=== PATIENT | male | born 1955 | race African-American/Black ===

== ENCOUNTER 2020-06-04 12:37 | Emergency (ER) | payer BC ==
--- NOTE | 2020-06-04 13:13 | EDM.PDOC ---
ED [facility] GENERAL MEDICAL PROBLEM - General Chief Complaint: Abdominal Pain Stated Complaint: ABDOMINAL PAIN Time Seen by Provider: 06/04/20 12:39 Source of Information: Reports: Patient History Limitations: Reports: No Limitations - History of Present Illness INITIAL COMMENTS - FREE TEXT/NARRATIVE: HISTORY AND PHYSICAL: History of present illness: Patient is a 65-year-old male who presents to the ED today with concern of an episode of abdominal pain that he states was more severe that happened 3 days ago. Patient states that since then he has had some leftover soreness in his abdomen but states that he is not having abdominal pain at this time. Patient states he was concerned because a friend told him with how severe his abdominal pain could be, that he could have an ulcer. Patient states that he has had this abdominal pain in the past and was placed on omeprazole and states that he had improvement of his symptoms several years ago. Patient denies any current symp toms at this time. Patient denies fever, chills, chest pain, shortness of breath, or cough. Denies headache, neck stiff ness, change in vision, syncope, or near syncope. Denies nausea, vomiting, abdominal pain, diarrhea, constipation, or dysuria. Has not noted any blood in urine or stool. Patient has been eating and drinking appropriately. Review of systems: As per history of present illness and below otherwise all systems reviewed and negative. Past medical history: As per history of present illness and as reviewed below otherwise noncontributory. Surgical history: As per history of present illness and as reviewed below otherwise noncontributory. Social history: See social history for further information Family history: As per history of present illness and as reviewed below otherwise noncontributory. Physical exam: General: Patient is alert, oriented, and in no acute distress. Patient sitting comfortably on exam table. HEENT: Atraumatic, normocephalic, pupils equal and reactive bilaterally, negative for conjunctival pallor or scleral icterus, mucous membranes moist, TMs normal bilaterally, throat clear, neck supple, nontender, trachea midline. No drooling or trismus noted. No meningeal signs. No hot potato voice noted. Lungs: Clear to auscultation, breath sounds equal bilaterally, chest nontender. Heart: S1S2, regular rate and rhythm without overt murmur Abdomen: Soft, nondistended, nontender. Negative for masses or hepatosplenomegaly. Negative for costovertebral tenderness. Pelvis: Stable nontender. Genitourinary: Deferred. Rectal: Deferred. Skin: Intact, warm, dry. No lesions or rashes noted. Extremities: Atraumatic, negative for cords or calf pain. Neurovascular unremarkable. Neuro: Awake, alert, oriented. Cranial nerves II through XII unremarkable. Ce rebellum unremarkable. Motor and sensory unremarkable throughout. Exam nonfocal. Notes: Patient is not currently having any symptoms today, however, will do medical screening exam due to significance of stated abdominal pain that occurred 2 to 3 days ago. Discussed importance for follow-up with a primary care provider. Voices understanding and is agreeable to plan of care. Denies any further ques tions or concerns at this time. Diagnostics: CBC, CMP, UA, EKG, troponin, lipase, CXR Therapeutics: None Prescription: None Impression: Medical screening exam H/O abdominal pain Plan: 1. You can take ciqh-knj-uofunej omeprazole (Prilosec) as directed and as discussed. 2. Follow-up with a primary care provider as discussed. Return to the ED as needed and as discussed. Definitive disposition and diagnosis as appropriate pending reevaluation and review of above. - Related Data Allergies Allergy/AdvReac Type Severity Reaction Status Date / Time No Known Allergies Allergy Verified 06/04/20 13:31 Home Meds: Home Meds Esomeprazole [NexIUM] 20 mg PO DAILY 06/04/20 [History] amLODIPine [Norvasc] 0 mg PO DAILY 06/04/20 [History] lisinopriL [Lisinopril] 20 mg PO DAILY 06/04/20 [History] ED ROS GENERAL - Review of Systems Review Of Systems: Comprehensive ROS is negative, except as noted in HPI. ED EXAM, GENERAL - Physical Exam Exam: See Below (see dictation) Course - Vital Signs Last Recorded V/S: Last Vital Signs Temp 97.2 F 06/04/20 13:05 Pulse 76 06/04/20 13:05 Resp 17 06/04/20 13:05 BP 110/74 06/04/20 13:05 Pulse Ox 97 06/04/20 13:05 - Orders/Labs/Meds Orders: Active Orders 24 hr Category Date Time Status EKG Documentation Completion [RC] STAT Care 06/04/20 13:28 Active UA RFX JORY AND CULT IF INDIC [URIN] Stat Lab 06/04/20 13:28 Stop Req Labs: Laboratory Tests 06/04/20 06/04/20 Range/Units 13:47 13:47 WBC 6.60 (4.0-11.0) K/uL RBC 4.72 (4.50-5.90) M/uL Hgb 14.2 (13.0-17.0) g/dL Hct 43.3 (38.0-50.0) % MCV 91.7 (80.0-98.0) fL MCH 30.1 (27.0-32.0) pg MCHC 32.8 (31.0-37.0) g/dL RDW Std Deviation 42.5 (28.0-62.0) fl RDW Coeff of Federica 13 (11.0-15.0) % Plt Count 224 (150-400) K/uL MPV 9.30 (7.40-12.00) fL Neut % (Auto) 59.0 (48.0-80.0) % Lymph % (Auto) 29.8 (16.0-40.0) % [place] % (Auto) 8.5 (0.0-15.0) % Eos % (Auto) 2.4 (0.0-7.0) % Baso % (Auto) 0.3 (0.0-1.5) % Neut # (Auto) 3.9 (1.4-5.7) K/uL Lymph # (Auto) 2.0 (0.6-2.4) K/uL [place] # (Auto) 0.6 (0.0-0.8) K/uL Eos # (Auto) 0.2 (0.0-0.7) K/uL Baso # (Auto) 0.0 (0.0-0.1) K/uL Nucleated RBC % 0.0 /100WBC Nucleated RBCs # 0 K/uL Sodium 141 (136-148) mmol/L Potassium 4.3 (3.5-5.1) mmol/L Chloride 106 (98-107) mmol/L Carbon Dioxide 24.9 (21.0-32.0) mmol/L BUN 19 H (7.0-18.0) mg/dL Creatinine 1.1 (0.8-1.3) mg/dL Est Cr Clr Drug Dosing 76.67 mL/min Estimated GFR (MDRD) > 60.0 ml/min Glucose 106 (74-106) mg/dL Calcium 9.3 (8.5-10.1) mg/dL Total Bilirubin 0.4 (0.2-1.0) mg/dL AST 35 (15-37) IU/L ALT 60 (14-63) IU/L Alkaline Phosphatase 66 (46-116) U/L Troponin I < 0.050 (0.000-0.056) ng/mL Total Protein 7.3 (6.4-8.2) g/dL Albumin 3.6 (3.4-5.0) g/dL Globulin 3.7 (2.6-4.0) g/dL Albumin/Globulin Ratio 1.0 (0.9-1.6) Lipase 141 (73-393) U/L Departure - Departure Time of Disposition: 14:46 Disposition: Home, Self-Care 01 Clinical Impression: Encounter for medical screening examination, History of abdominal pain - Discharge Information Referrals: PCP,Not In Area [Primary Care Provider] - Forms: ED Department Discharge Additional Instructions: The following information is given to patients seen in the emergency department who are being discharged to home. This information is to outline your options for follow-up care. We provide all patients seen in our emergency department with a follow-up referral. The need for follow-up, as well as the timing and circumstances, are variable depending upon the specifics of your emergency department visit. If you don't have a primary care physician on staff, we will provide you with a referral. We always advise you to contact your personal physician following an emergency department visit to inform them of the circumstance of the visit and for follow-up with them and/or the need for any referrals to a consulting specialist. The emergency department will also refer you to a specialist when appropriate. This referral assures that you have the opportunity for follow-up care with a specialist. All of these measure are taken in an effort to provide you with optimal care, which includes your follow-up. Under all circumstances we always encourage you to contact your private physician who remains a resource for coordinating your care. When calling for follow-up care, please make the office aware that this follow-up is from your recent emergency room visit. If for any reason you are refused follow-up, please contact the [facility] Emergency Department at and asked to speak to the emergency department charge nurse. [facility] [address] [place] [address] [address] 1. You can take djni-dth-lihoyvl omeprazole (Prilosec) as directed and as discussed. 2. Follow-up with a primary care provider as discussed. Return to the ED as needed and as discussed. Sepsis Event Note (ED) - Evaluation Sepsis Screening Result: No Definite Risk - Focused Exam Vital Signs: Vital Signs Temp Pulse Resp BP Pulse Ox 06/04/20 13:05 97.2 F 76 17 110/74 97 - My Orders Last 24 Hours: My Active Orders 06/04/20 13:28 EKG Documentation Completion [RC] STAT UA RFX JORY AND CULT IF INDIC [URIN] Stat - Assessment/Plan Last 24 Hours: My Active Orders 06/04/20 13:28 EKG Documentation Completion [RC] STAT UA RFX JORY AND CULT IF INDIC [URIN] Stat
[2020-06-04 14:28] LABS: BLOOD UREA NITROGEN,BUN 19 mg/dL (7.0-18.0); CARBON DIOXIDE,CO2 24.9 mmol/L (21.0-32.0); CHLORIDE,CL 106 mmol/L (98-107); GLUCOSE RANDOM 106 mg/dL (74-106); LIPASE 141 U/L (73-393); POTASSIUM,K 4.3 mmol/L (3.5-5.1); SODIUM,NA 141 mmol/L (136-148)
--- NOTE | 2020-06-04 14:31 | CR ---
Chest: Portable view of the chest was obtained. Comparison: No previous chest imaging. Heart size and mediastinum are normal. Lungs are clear with no acute parenchymal change. Bony structures are grossly intact. Impression: 1. Nothing acute is seen on the frontal chest x-ray. Diagnostic code #1 This report was dictated in MDT
== END 2020-06-04 14:50 | disposition home or self-care (01) ==
LOC: MW.ED 12:37
DX: Z13.89 Encounter for screening for other disorder (principal); Z79.899 Other long term (current) drug therapy
CPT/HCPCS: 36415; 71045; 71045-26; 80053; 83690; 84484; 85025; 93005; 99283; 99283-25

== ENCOUNTER 2020-06-25 09:03 | Day surgery (SDC) | payer BC, OTHER ==
[~2020-06-25 09:03] MED LIST: Lactated Ringers 1,000 ML IV SCH
[2020-06-25] MEDS ORDERED: Propofol 200 MG/20 ML SDV ONE ×3 (10:17→11:32)
--- NOTE | 2020-06-25 10:41 | PCM.PREANE ---
Preanesthetic Assessment - Anesthesia/Transfusion/Family Hx Anesthesia History: Prior Anesthesia Without Reaction Other Type of Anesthesia Reaction Comment: states "it is hard to put me under" Family History of Anesthesia Reaction: No Transfusion History: No Prior Transfusion(s) Intubation History: Unknown - Review of Systems General: No Symptoms Pulmonary: No Symptoms Cardiovascular: No Symptoms Gastrointestinal: Abdominal Pain Neurological: No Symptoms Other: Reports: None - Physical Assessment Height: 6 ft 1 in Weight: 81.647 kg ASA Class: 3 Mental Status: Alert & Oriented x3 Airway Class: Mallampati = 2 Dentition: Reports: Partial (upper (removed)) Thyro-Mental Finger Breadths: 3 Mouth Opening Finger Breadths: 3 ROM/Head Extension: Full Lungs: Normal Respiratory Effort Cardiovascular: Regular Rate, Regular Rhythm - Lab Values: Laboratory Last Values SARS-CoV-2 RNA (MICHAEL) NEGATIVE (NEGATIVE) 06/25/20 09:15 - Allergies Allergies/Adverse Reactions: Allergies Allergy/AdvReac Type Severity Reaction Status Date / Time No Known Allergies Allergy Verified 06/23/20 08:59 - Blood Blood Available: No - Anesthesia Plan Pre-Op Medication Ordered: None - Acknowledgements Anesthesia Type Planned: MAC Pt an Appropriate Candidate for the Planned Anesthesia: Yes Alternatives and Risks of Anesthesia Discussed w Pt/Guardian: Yes Pt/Guardian Understands and Agrees with Anesthesia Plan: Yes PreAnesthesia Questionnaire HEENT History: Reports: Other (See Below) Other HEENT History: wears glasses, has top denture Cardiovascular History: Reports: Hypertension Respiratory History: Reports: None Gastrointestinal History: Reports: Colon Polyp, GERD, Hepatitis Other Gastrointestinal History: intermittent abd pain, states he was told he had hepatitis C , 5 to 6 months ago. Genitourinary History: Reports: None Musculoskeletal History: Reports: None Neurological History: Reports: None Psychiatric History: Reports: None Endocrine/Metabolic History: Reports: None Hematologic History: Reports: None Immunologic History: Reports: None Oncologic (Cancer) History: Reports: Other (See Below) (recent CT scanshowed mass at lateral wall of terminal ileum, also cluster of enlarged lymph nodes around lung mass and prominent lymph nodes in the mesentery) Dermatologic History: Reports: None - Infectious Disease History Infectious Disease History: Reports: Hepatitis C - Past Surgical History Head Surgeries/Procedures: Reports: None HEENT Surgical History: Reports: None Cardiovascular Surgical History: Reports: None Respiratory Surgical History: Reports: None GI Surgical History: Reports: None, Colonoscopy ('15 in [place]) Male Surgical History: Reports: None Endocrine Surgical History: Reports: None Neurological Surgical History: Reports: None Musculoskeletal Surgical History: Reports: None Oncologic Surgical History: Reports: None Dermatological Surgical History: Reports: None - SUBSTANCE USE Smoking Status *Q: Current Some Day Smoker Tobacco Use Within Last Twelve Months: Cigarettes - HOME MEDS Home Medications: Home Meds Esomeprazole [NexIUM] 20 mg PO DAILY 06/04/20 [History] amLODIPine [Norvasc] 10 mg PO DAILY 06/04/20 [History] lisinopriL [Lisinopril] 20 mg PO DAILY 06/04/20 [History] - CURRENT (IN HOUSE) MEDS Current Meds: Current Medications Lactated Ringer's (Ringers, Lactated) 1,000 mls @ 125 mls/hr IV ASDIRECTED ANDRAE Discontinued Medications Lidocaine HCl (Xylocaine-Mpf 1%) Confirm Administered Dose 5 ml .ROUTE .STK-MED ONE Stop: 06/25/20 10:18 Propofol (Diprivan 20 Ml) Confirm Administered Dose 400 mg .ROUTE .STK-MED ONE Stop: 06/25/20 10:18
--- NOTE | 2020-06-25 12:12 | PCM.POSTAN ---
POST ANESTHESIA ASSESSMENT - MENTAL STATUS Mental Status: Alert, Oriented - VITAL SIGNS Vital Signs: Last Vital Signs Temp 36.9 C 06/25/20 10:30 Pulse 75 06/25/20 12:06 Resp 13 06/25/20 12:06 BP 140/80 06/25/20 12:06 Pulse Ox 100 06/25/20 12:06 - RESPIRATORY Respiratory Status: Respiratory Rate WNL, Airway Patent, O2 Saturation Stable - CARDIOVASCULAR CV Status: Pulse Rate WNL, Blood Pressure Stable - GASTROINTESTINAL GI Status: No Symptoms - PAIN Pain Score: 0 - POST OP HYDRATION Hydration Status: Adequate & Stable - OBSERVATIONS Free Text/Narrative:: No anesthesia problems
--- NOTE | 2020-06-25 12:21 | PCM.OPNOTE ---
- General Post-Op/Procedure Note Date of Surgery/Procedure: 06/25/20 Operative Procedure(s): Colonoscopy - incomplete - with snarr polypectomy and EGD and with biopsies Findings: Unable to get past the splenic flexture on colonoscopy, Polyp at 20 cm. EGD with irregular GE junction. Pre Op Diagnosis: abdominal pain. Post-Op Diagnosis: incomplete colonoscopy, colon polyp, irregular GE juction. Anesthesia Technique: Moderate Sedation Primary Surgeon: Ritesh Mendoza Pathology: EGD with biopsies, colon polyp at 20 cm, random colon biopsies. Complications: None Condition: Good Free Text/Narrative:: Intake & Output 06/24/20 06/25/20 06/25/20 22:59 06:59 14:59 Intake Total 750 Balance 750
--- NOTE | 2020-06-25 12:33 | PCM48HPAN ---
Post Anesthesia Note - EVALUATION WITHIN 48HRS OF ANESTHETIC Vital Signs in Normal Range: Yes Patient Participated in Evaluation: Yes Respiratory Function Stable: Yes Airway Patent: Yes Cardiovascular Function Stable: Yes Hydration Status Stable: Yes Pain Control Satisfactory: Yes Nausea and Vomiting Control Satisfactory: Yes Mental Status Recovered: Yes Vital Signs: Last Vital Signs Temp 36.1 C 06/25/20 12:15 Pulse 71 06/25/20 12:22 Resp 16 06/25/20 12:22 BP 139/76 06/25/20 12:22 Pulse Ox 99 06/25/20 12:22 - COMMENTS/OBSERVATIONS Free Text/Narrative:: No anesthesia problems
--- NOTE | 2020-06-25 15:33 | OR ---
SURGEON: ALEX PRUETT MD DATE OF PROCEDURE: 06/25/2020 PREOPERATIVE DIAGNOSES: Abdominal pain. He also had a CT scan showing masses in his omentum and a mass potentially involving the wall of the terminal ileum. POSTOPERATIVE DIAGNOSES: 1. Slightly irregular gastroesophageal junction. 2. Colonoscopy, incomplete. 3. Colon polyp at 20 cm. PROCEDURES PERFORMED: 1. Colonoscopy, incomplete, to the splenic flexure. 2. Hot snare polypectomy. 3. Random colon biopsies. 4. Esophagogastroduodenoscopy with biopsies. PRIMARY SURGEON: Alex Pruett MD ANESTHESIA: General. EXTENT OF COLONOSCOPY: Likely to the splenic flexure. EXTENT OF EGD: To the duodenum. WITHDRAWAL TIME OF COLONOSCOPY: Not applicable. BOWEL PREP: Excellent. REASON FOR PROCEDURE: The patient is a pleasant 65-year-old gentleman who about a year ago started having abdominal pain. These come infrequently and have only happened about three times. When he has the pain, it is severe pain that bends him over. He did have a CT scan that showed multiple abdominal masses, some in the omentum, up in the left upper quadrant, and mass near his terminal ileum, possibly involving the wall of the terminal ileum. I did go over with the patient that we could do an upper and lower endoscopy and see if we find a potential source for these masses. I went over that I may not be able to get into the terminal ileum. The patient understands and wishes to proceed. PROCEDURE NARRATIVE: Physical examination was performed. The major risks and benefits associated with the procedure were explained to the patient in detail. The patient verbalized understanding of the same. The patient was then connected to appropriate monitoring devices and IV started. EKG, pulse, pulse oximetry, blood pressure, and capnography were monitored throughout the procedure. Sedation and oxygenation were provided by Anesthesia. The patient was placed in left lateral decubitus position. Sedation was began. After adequate sedation was achieved, an upper endoscope was advanced under direct visualization and without difficulty into the upper GI tract. The anatomy and mucosae of the esophagus, GE junction, stomach, pylorus, and first part of duodenum were inspected. Duodenum appeared normal. Scope was withdrawn to inspect the pylorus and stomach. Both retrograde and antegrade views of the stomach were done. No gastritis or ulcerations were seen. Biopsies were done of the pylorus to check for H. pylori The scope was brought up to the GE junction. The GE junction was at approximately 40 cm from the incisors. He did have a little irregularity to the Z-line. Four-quadrant biopsies were done. Scope was brought back into the stomach. There was good hemostasis. Stomach was desufflated. Scope was then brought back to the GE junction. Good hemostasis. Scope was brought up to the esophagus. Esophagus appeared normal. The scope was completely removed and this part of the procedure was terminated. Gloves and scopes were changed. Now, a rectal exam was done. The patient did have some noninflamed external hemorrhoids. Now, a well-lubricated Olympus colonoscope was entered in the rectum and advanced under direct visualization. I did attempt to make it to the level of the cecum. I was only able to advance to what appeared to be the splenic flexure. At this point I actually had difficulty finding where the lumen went. I did do multiple changes in the patient's positioning, however, the lumen did not really present itself. Potentially, it looked like the colon might be folding right back upon itself. I just was not able to advance the scope safely. Since the scope was not able to advanced, I decided to abort the colonoscopy and started withdrawing the scope in a somewhat circular fashion looking at the color, texture, anatomy, and integrity of the mucosa from what appeared to be the splenic flexure. I did do random biopsies of the mucosa. The patient did have an excellent bowel prep. At about 20 cm, the patient did have a long elongated polyp, which was removed with a hot snare polypectomy. There was good hemostasis. Scope was continued to be withdrawn. Scope was retroflexed in the rectum. He did have some internal hemorrhoids, noninflamed. Scope was then removed, and the patient was transferred to the recovery room in stable condition. RECOMMENDATIONS: The patient should follow up in my clinic to go over the pathology. I did explain to the patient and his that I was not able to get to the cecum or into the terminal ileum. I was unable to see the mass or do any biopsies. I went over he would likely need to get Interventional Radiology to try to get some tissue samples. They understand. They want to wait and see if the random biopsies reveal anything. Again, I will see him next week in clinic to go over these and at that time send a referral to Interventional Radiology. All their questions were answered. GAIL LAWS /[id number] REYES
== END 2020-06-25 12:40 | disposition home or self-care (01) ==
LOC: MW.SDS 09:03
PROVIDERS: ATTEND Surgery
DX: D12.6 Benign neoplasm of colon, unspecified (principal); K29.50 Unspecified chronic gastritis without bleeding; I10 Essential (primary) hypertension; K21.9 Gastro-esophageal reflux disease without esophagitis; Z01.812 Encounter for preprocedural laboratory examination; Z20.828 Contact with and (suspected) exposure to other viral communicable diseases; Z87.891 Personal history of nicotine dependence; Z79.899 Other long term (current) drug therapy
CPT/HCPCS: 43239; 45331; 45338; 87635; J2001; J2704; J7120; 00813; 88305; 88312; U0002